=== PATIENT | male | born 1985 | race Native Hawaiian/Other Pacific Islander ===

== ENCOUNTER 2019-07-09 16:37 | Emergency (ER) | payer BC ==
--- NOTE | 2019-07-09 16:54 | Event Note ---
ED Screening Note Date of service: 07/09/19 Time: 16:50 ED Screening Note: 33 y o male presents with suprapubic pain and inability to urinate x 10 hours has been taking pain meds for tendon repair monday 4 days ago celecoxib This initial assessment/diagnostic orders/clinical plan/treatment(s) is/are subject to change based on patients health status, clinical progression and re- assessment by fellow clinical providers in the ED. Further treatment and workup at subsequent clinical providers discretion. Patient/guardian urged not to elope from the ED as their condition may be serious if not clinically assessed and managed. Initial orders include: straight cath, ua
[2019-07-09 16:56] VITALS: BP 145/96
--- NOTE | 2019-07-09 18:34 | Emergency Department Report ---
ED General Adult HPI - General Chief complaint: Urogenital-Male Stated complaint: CANT URINATE 10 HRS/EXTREME PAIN Time Seen by Provider: 07/09/19 16:49 Source: patient Mode of arrival: Ambulatory Limitations: Language Barrier - History of Present Illness Initial comments: Patient presents to the emergency department with a chief complaint of the inability to urinate. Patient had surgery on this shoulder on Monday and since that time also complains of constipation. Patient states that he was urinating okay until today. -: Sudden Location: abdomen Severity scale (0 -10): 10 Quality: aching Consistency: constant Improves with: none Worsens with: none Associated Symptoms: denies other symptoms Treatments Prior to Arrival: none - Related Data Previous Rx's Medication Instructions Recorded Last Taken Type Magnesium Citrate [Citrate of 300 ml PO ONCE #1 solution 07/09/19 Unknown Rx Magnesia] Sulfamethoxazole/Trimethoprim 1 each PO BID #6 tablet 07/09/19 Unknown Rx [Bactrim DS TAB] Allergies Allergy/AdvReac Type Severity Reaction Status Date / Time No Known Allergies Allergy Verified 07/09/19 16:56 ED Review of Systems ROS: Stated complaint: CANT URINATE 10 HRS/EXTREME PAIN Other details as noted in HPI Comment: All other systems reviewed and negative Constitutional: denies: chills, fever Eyes: denies: eye pain, eye discharge, vision change ENT: denies: ear pain, throat pain Respiratory: denies: cough, shortness of breath, wheezing Cardiovascular: denies: chest pain, palpitations Endocrine: no symptoms reported Gastrointestinal: denies: abdominal pain, nausea, diarrhea Genitourinary: denies: urgency, dysuria Musculoskeletal: denies: back pain, joint swelling, arthralgia Skin: denies: rash, lesions Neurological: denies: headache, weakness, paresthesias Psychiatric: denies: anxiety, depression Hematological/Lymphatic: denies: easy bleeding, easy bruising ED Past Medical Hx - Past Medical History Previous Medical History?: No - Surgical History Past Surgical History?: Yes Additional Surgical History: right shoulder surgery - Social History Smoking Status: Never Smoker - Medications Home Medications: Home Medications Medication Instructions Recorded Confirmed Last Taken Type Magnesium Citrate [Citrate of 300 ml PO ONCE #1 solution 07/09/19 Unknown Rx Magnesia] Sulfamethoxazole/Trimethoprim 1 each PO BID #6 tablet 07/09/19 Unknown Rx [Bactrim DS TAB] ED Physical Exam - General Limitations: Language Barrier General appearance: alert, in no apparent distress - Head Head exam: Present: atraumatic, normocephalic - Eye Eye exam: Present: normal appearance - ENT ENT exam: Present: mucous membranes moist - Neck Neck exam: Present: normal inspection - Respiratory Respiratory exam: Present: normal lung sounds bilaterally. Absent: respiratory distress - Cardiovascular Cardiovascular Exam: Present: regular rate, normal rhythm. Absent: systolic murmur, diastolic murmur, rubs, gallop - GI/Abdominal GI/Abdominal exam: Present: soft, normal bowel sounds, other (distended bladder on exam) - Rectal Rectal exam: Present: deferred - Extremities Exam Extremities exam: Present: normal inspection - Back Exam Back exam: Present: normal inspection - Neurological Exam Neurological exam: Present: alert, oriented X3 - Psychiatric Psychiatric exam: Present: normal affect, normal mood - Skin Skin exam: Present: warm, dry, intact, normal color. Absent: rash ED Course Vital Signs 07/09/19 16:52 Temperature 98 F Pulse Rate 92 H Respiratory 22 Rate Blood Pressure 145/96 [Left] O2 Sat by Pulse 98 Oximetry ED Medical Decision Making - Medical Decision Making Gonzalez placed and the patient produced 1000 mL of urine leg bag placed Critical care attestation.: If time is entered above; I have spent that time in minutes in the direct care of this critically ill patient, excluding procedure time. ED Disposition Clinical Impression: Urinary retention Disposition: DC-01 TO HOME OR SELFCARE Is pt being admited?: No Does the pt Need Aspirin: No Condition: Stable Instructions: Urinary Retention in Men (ED) Additional Instructions: return if worse Prescriptions: Sulfamethoxazole/Trimethoprim [Bactrim DS TAB] 1 each PO BID #6 tablet Magnesium Citrate [Citrate of Magnesia] 300 ml PO ONCE #1 solution Referrals: RAKESH RYAN MD [Staff Physician] - 3-5 Days [facility] [Provider Group] - 3-5 Days [facility] [Provider Group] - 3-5 Days Time of Disposition: 18:36
== END 2019-07-09 18:48 | disposition home or self-care (01) ==
LOC: ED 16:37
DX: R33.9 Retention of urine, unspecified (principal); Z98.890 Other specified postprocedural states; Z79.899 Other long term (current) drug therapy
CPT/HCPCS: 51702